=== PATIENT | male | born 1995 | race Caucasian/White ===

== ENCOUNTER → 2016-09-13 | Outpatient (CLI) | payer BC ==
[~2016-09-13] MED LIST: GLUCTAB7 PO; MULT-506 PO; PRED20TA PO
--- NOTE | 2016-09-13 12:27 | DIAGNOSTIC IMAGING REPORT ---
RIGHT ANKLE MIN 3 VIEWS ROUTINE CLINICAL HISTORY: Right ankle pain status post trauma COMPARISON: None. DISCUSSION: No acute fractures are visualized. There is 18 mm lytic lesion within the distal tibia abutting the articular surface. This has a narrow zone of transition with a sclerotic rim. This appears nonaggressive. There is no evidence for soft tissue swelling. IMPRESSION: 1. No acute fractures 2. 18 mm lytic lesion within the distal tibia with a nonaggressive appearance. Electronically signed by: Morgan Montes De Oca M.D. 09/13/2016 12:26 PM Dictated Date/Time: 09/13/2016 12:24 PM
== END | disposition home or self-care (01) ==
LOC: C.RAD 12:10
PROVIDERS: ATTEND Family Medicine
DX: M25.571 Pain in right ankle and joints of right foot (principal)

== ENCOUNTER → 2016-09-21 | Outpatient (CLI) | payer BC ==
--- NOTE | 2016-09-21 15:50 | DIAGNOSTIC IMAGING REPORT ---
RIGHT LOWER EXT JOINT WITHOUT CLINICAL HISTORY: R ANKLE PAIN Right TECHNIQUE: Multi axial MRI acquisition COMPARISON STUDY: None FINDINGS: Findings consistent with subchondral cystic changes of the mid tibia. He defects extend to the immediate subchondral region. Small focal loss of articular services of the central tibia. Suggest developing avascular necrosis. There is moderate reactive edematous change of the distal tibia throughout. Significant loss of bony substance is not appreciated. Talar dome appears to be intact. Medial and lateral collateral ligaments appear to be intact. All major ligamentous and tendinous structures appear unremarkable. Subtalar joint is unremarkable. Visualized components of the entire fascial planes show normal signal characteristics throughout. IMPRESSION: 1. 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 2. Overall appearance suggesting developing osteochondritis dissecans is considered. 3. All remaining ligamentous and tendinous and osseous structures appear unremarkable. The above report was generated using voice recognition software. It may contain grammatical, syntax or spelling errors. Electronically signed by: Antoine Solis M.D. 09/21/2016 3:49 PM Dictated Date/Time: 09/21/2016 3:45 PM
== END | disposition home or self-care (01) ==
LOC: C.MRIBC 14:43
PROVIDERS: ATTEND Family Medicine
DX: M25.571 Pain in right ankle and joints of right foot (principal); R93.7 Abnormal findings on diagnostic imaging of other parts of musculoskeletal system

== ENCOUNTER 2016-10-27 05:10 | Day surgery (SDC) | payer BC ==
[2016-10-21 08:10] VITALS: BMI 25.0
[~2016-10-27] VITALS: Ht 188 cm; Wt 90.9 kg
[2016-10-27 05:33] VITALS: BP 139/85; PULSE 60; TEMP 36.5; O2SAT 100; Ht 188 cm; Wt 90.9 kg
[2016-10-27] MEDS ORDERED: CEFAZOLIN 2000 MG/60 ML D5W 60 ML IV SCH (06:00)
[2016-10-27] MEDS ORDERED: LACTATED RINGER'S 1000ML 1,000 ML IV SCH (06:00)
[2016-10-27] MEDS ORDERED: LACTATED RINGER'S 1000ML IV SCH (06:00)
[2016-10-27] MEDS ORDERED: ROPIVACAINE 0.5% 5 MG/ML 30 ML VIAL ONE (06:29)
[2016-10-27] MEDS ORDERED: MIDAZOLAM HCL 1 MG/ML 2ML VIAL ONE (06:37)
[2016-10-27] MEDS ORDERED: FENTANYL CITRATE INJ 50 MCG/1 ML 2 ML VIAL ONE ×2 (06:37→07:37)
--- NOTE | 2016-10-27 06:42 | History & Physical Bridge Note ---
H&P Re-Evaluation Bridge Note: I have examined the patient, reviewed the History & Physical and in the interval since the performance of the History & Physical I have noted the following changes of clinical significance: No changes noted
[2016-10-27] MEDS ORDERED: BUPIVACAINE/EPINEPHRINE 0.5% MPF 1:200,000 10 ML VIAL ONE (06:43)
[2016-10-27] MEDS ORDERED: LIDOCAINE HCL 1% 20 ML VIAL ONE (06:43)
[2016-10-27] MEDS ORDERED: ONDANSETRON INJ 2 MG/ML 2 ML VIAL ONE (07:14)
[2016-10-27] MEDS ORDERED: PROPOFOL IV EMULSION 10 MG/ML 20 ML VIAL IV ONE (07:14)
[2016-10-27] MEDS ORDERED: LIDOCAINE 2% 20 MG/ML 5ML SYR ONE (07:14)
[2016-10-27] MEDS ORDERED: DEXAMETHASONE SOD INJ 4 MG/ML VIAL ONE (07:14)
[2016-10-27] MEDS ORDERED: ATROPINE SULFATE 0.1 MG/ML 5ML SYR IV PRN (08:45)
[2016-10-27] MEDS ORDERED: EpHEDrine SULFATE INJ 50 MG/ML AMP IV PRN (08:45)
[2016-10-27] MEDS ORDERED: ONDANSETRON INJ 2 MG/ML 2 ML VIAL IV PRN ×2 (08:45→10:00)
[2016-10-27] MEDS ORDERED: PROMETHAZINE HCL INJ 12.5 MG in SODIUM CHLORIDE 0.9% 50ML 50 ML IV PRN (08:45)
[2016-10-27] MEDS ORDERED: HYDROmorphone INJ 1 MG/ML SYR IV PRN (08:45)
[2016-10-27] MEDS: EpINEphrine HCL INJ 1 MG/ML 5ML SYRINGE ONE ×2 (09:13→09:50)
[2016-10-27] MEDS ORDERED: OXYCODONE/ACETAMINOPHEN 5-325 TAB PO PRN (10:00)
[2016-10-27] MEDS ORDERED: MoRPHine SULFATE 4 MG/ML 1 ML CARP\\VIAL IV PRN (10:00)
[2016-10-27] MEDS ORDERED: MoRPHine SULFATE 2 MG/ML CARP IV PRN (10:00)
--- NOTE | 2016-10-27 10:05 | [facility] Post Operative Brief Note ---
Immediate Operative Summary Operative Date Oct 27, 2016. Pre-Operative Diagnosis Right ankle osteochondral defect Post-Operative Diagnosis Right ankle synovitis, subcondral cyst Procedure(s) Performed 1) Right Ankle Arthroscopy, extensive Debridement. 2) Arthroscopic assisted Retrograde Drilling Decompression. 3) Ankle block. 4) Exam under anesthesia. Surgeon Dr. Benny Morgan Spinner Operator Surgeon(s) Quang Lugo PA-C and Benjamin Peñaloza MD Estimated Blood Loss 5 mL Findings As above. Articular cartilage of the Tibial plafond was soft but intact. Fluids (cc crystalloids) 1000 Specimens No pathology specimens per surgeon Drains n/a Anesthesia LMA + Ankle block Complication(s) None Disposition Recovery Room / PACU (Stable)
[2016-10-27] MEDS ORDERED: KETOROLAC TROMETHAMINE 30 MG/ML VIAL ONE (10:06)
--- NOTE | 2016-10-27 10:09 | DIAGNOSTIC IMAGING REPORT ---
INTRAOPERATIVE RADIOGRAPHS CLINICAL HISTORY: Right ankle chondroplasty. Fluoroscopy time: 43 seconds. FINDINGS: 7 spot fluoroscopic views of the right ankle are correlated with radiographs dated 09/13/2016. Several probes project over the distal tibia at the tibiotalar articulation on the fluoroscopic images. IMPRESSION: Intraoperative images from a right ankle chondroplasty procedure. See operative report for detailed findings. Electronically signed by: Dean Leon M.D. 10/27/2016 10:08 AM Dictated Date/Time: 10/27/2016 10:06 AM
--- NOTE | 2016-10-27 10:09 | [facility] Operative Report ---
Operative Report Operative Date Oct 27, 2016. Pre-Operative Diagnosis Right ankle osteochondral defect Post-Operative Diagnosis Right ankle synovitis, subcondral cyst Procedure(s) Performed 1) Right Ankle Arthroscopy, extensive Debridement. 2) Arthroscopic assisted Retrograde Drilling Decompression. 3) Ankle block. 4) Exam under anesthesia. Surgeon Dr. Benny Morgan Fitter Tacker Surgeon(s) Quang Lugo PA-C and Benjamin Peñaloza MD Estimated Blood Loss 5 mL Findings Significant synovitis in the medial & lateral gutters. Articular cartilage of the Tibial Plafond was intact, but soft. Articular cartilage of the Talus normal. No loose bodies. EUA: No instability, stable anterior drawer. 5 deg Dorsiflexion, 30 deg Plantar flexion. Fluids 1000 Specimens No pathology specimens per surgeon Drains n/a Anesthesia LMA + Ankle block Complication(s) None Disposition Recovery Room / PACU (Stable) Indications The patient is a 21-year-old male, who has been having ankle pain and MRI with noted subchondral cyst of the tibial plafond and has failed conservative treatment. After a lengthy discussion with the patient regarding my above clinical findings as well as their treatment options of continued conservative management versus surgical intervention, they have elected to proceed with surgery. The patient wished to proceed with an ankle arthroscopy with debridement, possible chondroplasty versus microfracture, versus drilling, versus OATs-type procedure. The risks of procedure were discussed and include but not limited to: Infection, bleeding, nerve damage, continued pain, progression of arthritis, failure of the graft, failure of the hardware, decreased level of activity, possible need for repeat surgery, and deep vein thrombosis. The patient understood all these instructions and explanations all her questions were satisfactorily addressed. They wish to proceed with surgery and the informed consent was signed. Description of Procedure The patient was taken to the operating placed supine on the operating table. Following induction by anesthesia a multidisciplinary time-out was performed identifying the right lower extremity as the correct and operative limb. A bump was placed under the ipsilateral hip and the right lower extremity was placed in a well leg crane. Prior to any incisions being performed, 2 g of IV Ancef were given. The patient was prepped and draped in the usual orthopedic sterile fashion. All bony landmarks, as well as the tibialis anterior, and the superficial peroneal nerve branches were identified and marked as well as the planned anteromedial and anterolateral portals. The ankle joint line was also marked. The planned incisions and a ring block of the saphenous, superficial peroneal, posterior tibial, and deep peroneal nerves were injected with a 50-50 mixture of 1% lidocaine plain and 0.5% Marcaine with epinephrine for a total of 30 cc. The anteromedial portal was created first with the rachelle and spread technique. A spinal needle was placed into the ankle joint through the anteromedial portal and the joint was insufflated with 10 cc of normal saline. There is appropriate backflow noted. Initially a 2.7 mm scope was introduced however this was switched for the 2.4 mm 30 arthroscope. Initially there was significant synovitis encountered anteriorly, however this was noted throughout the medial and lateral gutters. The anterolateral portal was created under direct visualization, this was initially used as the working portal and then the portals were switched, to allow removal of the synovitis. This was debrided with mechanical shaver as it was encountered. There was no significant injury to the articular cartilage of the tibial plafond, only softening centrally. There were no loose bodies. After thorough evaluation of the ankle joint, it was decided to decompress the subchondral cyst with retrograde drilling. The Arthrex aiming guide was placed and after identifying the cyst with fluoroscopy both in the AP and lateral projections, small incision was made over the anterior medial aspect of the tibia and the guide was placed down to the bone. Using K wire, the cyst was decompressed several times. The guide was used for the initial placement of the K wire. The 3 additional decompressions were done via freehand with fluoroscopy. The guide was still in place to protect the articular surfaces, which were not violated. The ankle was copiously irrigated. Any excessive fluid was then evacuated from the ankle. The portals were closed with 3-0 Prolene in the standard fashion followed by Xeroform, 4 x 4's, ABDs, sterile cast padding, a posterior splint, and an Pierre bandage. The sponge and needle counts were correct. Patient was awakened and taken to the recovery room in stable condition. POSTOPERATIVE INSTRUCTIONS: The patient will be allowed to be toe touch weightbearing and at his physical therapy appointment will be switched to a cam boot. After that he will progress from partial weightbearing to weightbearing as tolerated over the next 2-4 weeks. They were given pain medicine preoperatively. They will follow-up with Dr. Morgan in 10-15 days. I attest to the content of the Intraoperative Record and any orders documented therein. Any exceptions are noted below.
--- NOTE | 2016-10-27 10:15 | Discharge Instructions ---
Discharge Instructions Date of Service Oct 27, 2016. Admission Reason for Admission: Right Ankle Osteochondral Defect Discharge Discharge Diagnosis / Problem: Status post Right ankle arthroscopy, drilling Tibia Discharge Goals Goal(s): Decrease discomfort Activity Recommendations Activity Limitations: per Instructions/Follow-up section Exercise/Sports Limitations: rest today May Resume Sexual Activity: when tolerated Shower/Bathe: may shower/bathe in 3 days Driving or Machine Use: Not while in splint/boot or while taking Narcotics Weightbearing Status: Right toe touch . Instructions / Follow-Up Instructions / Follow-Up Dr. Morgan in 10-15 days. PT in 2-3 days. Current Hospital Diet Patient's current hospital diet: Regular Diet Discharge Diet Recommended Diet: Regular Diet Procedures Procedures Performed: 1) Right Ankle Arthroscopy, extensive Debridement. 2) Arthroscopic assisted Retrograde Drilling Decompression. 3) Ankle block. 4) Exam under anesthesia. Pending Studies Studies pending at discharge: no Medical Emergencies . Who to Call and When: Medical Emergencies: If at any time you feel your situation is an emergency, please call 911 immediately. . Non-Emergent Contact Non-Emergency issues call your: Surgeon Call Non-Emergent contact if: temperature is above 101.5, your pain is not controlled, wound has increased drainage, wound has increased redness . "Provider Documentation" section prepared by Benny Morgan. . VTE Core Measure Inpt VTE Proph given/why not?: Other Anticoagulation (Asprin), T.E.D. Stockings
[2016-10-27] MEDS: FENTANYL CITRATE INJ 50 MCG/1 ML 2 ML VIAL IV PRN ×2 (10:35→10:40)
--- NOTE | 2016-10-27 10:45 | [facility] Operative Report ---
Operative Report Operative Date Oct 27, 2016. Pre-Operative Diagnosis Right ankle osteochondral defect Post-Operative Diagnosis Right ankle synovitis, subcondral cyst Procedure(s) Performed 1) Right Ankle Arthroscopy, extensive Debridement. 2) Arthroscopic assisted Retrograde Drilling Decompression. 3) Ankle block. 4) Exam under anesthesia. Surgeon Dr. Benny Morgan Chemical Processing Supervisor Surgeon(s) Quang Lugo PA-C and Benjamin Peñaloza MD Estimated Blood Loss 5 mL Findings Same Fluids 1000 Specimens No pathology specimens per surgeon Drains n/a Anesthesia LMA + Ankle block Complication(s) None Disposition Recovery Room / PACU (Stable) Indications sustained injury to right lower extremity, surgery recommended, consents signed. Description of Procedure taken to the OR, prepped and draped, I was present the entire case, please see Dr. Morgan's note for further detail I attest to the content of the Intraoperative Record and any orders documented therein. Any exceptions are noted below.
--- NOTE | 2016-10-27 10:54 | Anesthesiology Progress Note ---
Anesthesia Post Op Note Date & Time Oct 27, 2016 at 10:54 Vital Signs Pain Intensity: 5 Vital Signs Past 12 Hours Date Time Temp Pulse Resp B/P (MAP) Pulse Ox O2 Delivery O2 Flow Rate FiO2 10/27/16 10:41 146/81 10/27/16 10:38 70 16 10/27/16 10:38 70 16 100 10/27/16 10:36 135/64 10/27/16 10:33 68 14 10/27/16 10:33 66 14 100 10/27/16 10:31 138/59 10/27/16 10:28 67 16 10/27/16 10:28 66 16 100 10/27/16 10:26 141/59 10/27/16 10:23 79 16 10/27/16 10:23 78 16 100 10/27/16 10:21 133/75 10/27/16 10:19 146/75 10/27/16 10:18 36.4 86 16 146/75 100 Mask 10 10/27/16 05:33 36.5 60 20 139/85 (103) 100 Room Air Notes Mental Status: alert / awake / arousable, participated in evaluation Pt Amnestic to Procedure: Yes Nausea / Vomiting: adequately controlled Pain: adequately controlled Airway Patency, RR, SpO2: stable & adequate BP & HR: stable & adequate Hydration State: stable & adequate Anesthetic Complications: no major complications apparent
[2016-10-27 11:15] VITALS: BP 136/81; PULSE 61; TEMP 36.5; O2SAT 98
[2016-10-27 11:45] VITALS: BP 125/66; PULSE 76; TEMP 36.5; O2SAT 98
== END 2016-10-27 12:15 | disposition home or self-care (01) ==
LOC: C.ACU 05:10
PROVIDERS: ATTEND Orthopaedic Surgery Sports Medicine
DX: M65.871 Other synovitis and tenosynovitis, right ankle and foot (principal); M25.871 Other specified joint disorders, right ankle and foot; D68.2 Hereditary deficiency of other clotting factors